=== PATIENT | male | born 1970 | race Caucasian/White ===

== ENCOUNTER 2023-09-15 11:19 | Outpatient (CLI) | payer BC, SELFPAY ==
--- OUTSIDE RECORDS SUMMARY | 2023-09-15 11:22 | XMS_ITS | Clinical Summary ---
Author Organization [facility] Address [place], [place] [address] Care Team Providers Care Press Set Up Name Role Phone Adrien Arvizu MD Primary Care Provider Allergies No known active allergies Medications Medication Sig Dispensed Refills Start Date End Date Status ACETAMINOPHEN 325 MG TAB PRN for LATHAM 0 07/15/2007 Active albuterol HFA (PROAIR HFA) 90 mcg/Actuation inhalerIndications:Acu te bronchospasm Inhale 2 Puffs by mouth every 4 hours while awake. 1 Inhaler 0 11/02/2009 Active predniSONE (DELTASONE) 20 mg tabletIndications:Acut e bronchospasm Take 3 tablets by mouth once daily X 5 days. Take with morning meal. 15 tablet 0 11/02/2009 Active Social History Tobacco Use Types Packs/Day Years Used Date Smoking Tobacco: Never Alcohol Use Standard Drinks/Week Comments Yes 0 (1 standard drink = 0.6 oz pur e alcohol) very very little Sex and Gender Information Value Date Recorded Sex Assigned at Not on file Gender Identity Not on file Sexual Orientation Not on file Obstetrics History Last Filed Vital Signs Vital Sign Reading Time Taken Comments Blood Pressure 135/85 11/02/2009 3:01 PM CDT Pulse 71 11/02/2009 3:01 PM CDT Temperature 36.8 ??C (98.3 ??F) 11/02/2009 3:01 PM CD T Respiratory Rate - - Oxygen Saturation 98% 11/02/2009 3:01 PM CDT Inhaled Oxygen Concentration - - Weight 83.2 kg (183 lb 6.4 oz) 11/02/2009 3:01 P M CDT Height - - Body Mass Index - - Plan of Treatment Health Maintenance Due Date Last Done Comments Tdap 1980 Depression screening for age 12+ 1981 HIV for age 15-65 1984 BMI (ht and wt on same day) for age 18+ 09/23/1987 Hepatitis C screening for ag e 18-79 09/23/1987 Tetanus booster 1989 Colonoscopy through age 75 2014 Lipids for age 45-75 2014 Zoster (shingles) series for age 50+ (1 of 2) 09/23/2019 COVID-19 vaccine series ( - 2022-24 season) 2022 Influenza for age 50-64 10/19/2023 Pneumococcal series for age 6-64 Aged Out No longer eligible based on patient's age to complete this topic Care Teams Press Set Up Relationship Specialty Start Date End Date Adrien Arvizu MD [address] [place] [address] PCP - General 11/02/09
== END 2023-09-15 11:20 | disposition home or self-care (01) ==
PROVIDERS: PCP Family Medicine; Visit Provider Family Medicine
DX: Z01.818 Encounter for other preprocedural examination (principal); Z12.5 Encounter for screening for malignant neoplasm of prostate
CPT/HCPCS: 80048; 85025; G0103

== ENCOUNTER 2023-09-29 06:35 | Outpatient (CLI) | payer BC, SELFPAY ==
--- OUTSIDE RECORDS SUMMARY | 2023-09-29 06:37 | XMS_ITS | Clinical Summary ---
Author Organization [facility] Address [place], [place] [address] Care Team Providers Care Statistical Financial Analyst Name Role Phone Adrien Arvizu MD Primary [...] age to complete this topic Care Teams Statistical Financial Analyst Relationship Specialty Start Date End Date Adrien Arvizu MD [address] [place] [address] PCP - General 11/02/09
--- NOTE | 2023-09-29 07:57 | W.ANESCHARGE ---
Anesthesia Charges Start Date/Time Anesthesia Start Date: 09/29/23 Anesthesia Start Time: 07:54 Stop Date/Time Anesthesia Stop Date: 09/29/23 Anesthesia Stop Time: 07:57
--- NOTE | 2023-09-29 08:49 | W.ANESCHARGE ---
Anesthesia Charges Start Date/Time Anesthesia Start Date: 09/29/23 Anesthesia Start Time: 07:34 Stop Date/Time Anesthesia Stop Date: 09/29/23 Anesthesia Stop Time: 07:57
--- NOTE | 2023-09-29 09:04 | W.ANESCHARGE ---
Anesthesia Charges Start Date/Time Anesthesia Start Date: 09/29/23 Anesthesia Start Time: 07:34 Stop Date/Time Anesthesia Stop Date: 09/29/23 Anesthesia Stop Time: 07:57
== END 2023-09-29 06:36 | disposition home or self-care (01) ==
LOC: OP CLINIC 06:36
PROVIDERS: PCP Family Medicine; Visit Provider Surgery
DX: Z12.11 Encounter for screening for malignant neoplasm of colon (principal); K57.30 Diverticulosis of large intestine without perforation or abscess without bleeding; Z86.010 Personal history of colon polyps
CPT/HCPCS: 00811; 00812; 45378; J2704

== ENCOUNTER 2024-09-15 10:50 | Outpatient (CLI) | payer BC, SELFPAY ==
--- NOTE | 2024-09-15 11:00 | CRLHL7_ITS ---
For Patients: As a result of the Century Cures Act, medical imaging exams and procedure reports are released immediately into your electronic medical record. You may view this report before your referring provider. If you have questions, please contact your health care provider. Indication: Nasal congestion, anosmia Technique: Noncontrast CT of the paranasal sinuses. Coronal and sagittal reformats. Bone and soft tissue algorithms. Comparison: CT sinus 05/25/2021 Findings: Frontal sinuses: Completely opacified frontal sinuses and recesses. Ethmoid air cells: Essentially completely opacified anterior and posterior ethmoid air cells. Sphenoid sinuses: Completely opacified left sphenoid sinus. Circumferential mucosal thickening throughout the right sphenoid sinus. Bilateral sphenoethmoidal recess opacification. Maxillary sinuses: Near complete opacification of the right maxillary sinus. Moderate lobulated circumferential mucosal thickening of the left maxillary sinus. Bilateral ostiomeatal unit opacification. Nasal cavity: Minor nasal septal deviation. No large yasmin bullosa. Polypoid mucosal lesions of the bilateral nasal cavities. Other structures: Clear mastoid air cells and middle ear cavities. Minimal right TMJ arthrosis. Orbits and intracranial structures are unremarkable for technique. IMPRESSION: 1. Pansinus mucosal inflammatory disease, similar to the 05/25/2021 CT. 2. Nasal polyps redemonstrated. Please note that all CT scans at this facility use dose modulation, iterative reconstruction, and/or weight-based dosing when appropriate to reduce radiation dose to as low as reasonably achievable. Dictated by Gely Cintron MD @ 09/16/2024 11:02:58 AM (Electronically Signed)
== END 2024-09-15 10:51 | disposition home or self-care (01) ==
LOC: CT 10:51
PROVIDERS: PCP Family Medicine; Visit Provider Otolaryngology
DX: R09.81 Nasal congestion (principal); J33.9 Nasal polyp, unspecified
CPT/HCPCS: 70486

== ENCOUNTER 2024-09-30 12:23 | Outpatient (CLI) | payer BC, SELFPAY | END 2024-09-30 12:24 | disposition home or self-care (01) | PROVIDERS: PCP Family Medicine; Visit Provider Family Medicine | DX: Z01.818 Encounter for other preprocedural examination (principal); Z12.5 Encounter for screening for malignant neoplasm of prostate | CPT/HCPCS: 80048; 80061; 85025; G0103 ==

== ENCOUNTER 2024-10-15 06:54 | Day surgery (SDC) | payer BC, SELFPAY ==
[2024-10-15] VITALS (15 sets, daily range): BP systolic 118–144; BP diastolic 81–101; PULSE 59–76; RESP 16–20; TEMP 36.2–36.7; O2SAT 95–100; BMI 28.3
[2024-10-15] MEDS: LACTATED RINGERS 1000 ML 1,000 ML 100 ML IV (07:30)
[2024-10-15] MEDS: SODIUM CHLORIDE 0.9 % (FLUSH) 10 ML SYRINGE IVF (07:35)
--- NOTE | 2024-10-15 07:49 | P.ANES_ITS ---
Anesthesia Charges Start Date/Time Anesthesia Start Date: 10/15/24 Anesthesia Start Time: 08:08 Stop Date/Time Anesthesia Stop Date: 10/15/24 Anesthesia Stop Time: 09:10 Coding CPT Codes CPT Codes: ANESTH NOSE/SINUS SURGERY - 97231 ([id number]) P1 - NORMAL HEALTHY PATIENT, QK - TREE FRUIT AND NUT FARMING SUPERVISOR 2-4 CNCRNT ANES PROC, QX - CARDIAC TECHNOLOGIST SVOli W/ MED DIRECTION
--- NOTE | 2024-10-15 07:49 | W.ANESCHARGE ---
Anesthesia Charges Start Date/Time Anesthesia Start Date: 10/15/24 Anesthesia Start Time: 08:08 Stop Date/Time Anesthesia Stop Date: 10/15/24 Anesthesia Stop Time: 09:10 Coding CPT Codes CPT Codes: ANESTH NOSE/SINUS SURGERY - 70586 ([id number]) P1 - NORMAL HEALTHY PATIENT, QK - EXCAVATOR OPERATOR 2-4 CNCRNT ANES PROC, QX - AGENCY SALES DEVELOPMENT ASSOCIATE SVOli W/ MED DIRECTION
[2024-10-15] MEDS: BUPIVACAINE 0.5%/EPINEPHRINE 0.9 MG (30.9 ML) INJECTION (08:24)
[2024-10-15] MEDS: AYR SALINE NASAL GEL 1 APPLIC NOSTRIL-B (08:45)
[2024-10-15] MEDS: MUPIROCIN 1 GM PACKET 1 APPLIC TOPICAL (08:45)
--- NOTE | 2024-10-15 09:26 | SUR.PHASEI ---
oral airway removed and pt coughed up a significant amount of bloody drainage pt suctioned and no further drainage noted
--- NOTE | 2024-10-15 10:03 | P.ANES_ITS ---
Anesthesia Charges Start Date/Time Anesthesia Start Date: 10/15/24 Anesthesia Start Time: 08:08 Stop Date/Time Anesthesia Stop Date: 10/15/24 Anesthesia Stop Time: 09:10 Coding CPT Codes CPT Codes: ANESTH NOSE/SINUS SURGERY - 84745 ([id number]) QK - GRINDER LAP 2-4 CNCRNT ANES PROC, QX - COMMERCIAL COLLECTOR SVC W/ MD MED DIRECTION, P1 - NORMAL HEALTHY PATIENT
--- NOTE | 2024-10-15 10:03 | W.ANESCHARGE ---
Anesthesia Charges Start Date/Time Anesthesia Start Date: 10/15/24 Anesthesia Start Time: 08:08 Stop Date/Time Anesthesia Stop Date: 10/15/24 Anesthesia Stop Time: 09:10 Coding CPT Codes CPT Codes: ANESTH NOSE/SINUS SURGERY - 03830 ([id number]) QK - DIRECTOR OF FIELD SALES 2-4 CNCRNT ANES PROC, QX - HOME SERVICE ADVISOR SVC W/ MD MED DIRECTION, P1 - NORMAL HEALTHY PATIENT
--- NOTE | 2024-10-15 10:33 | W.PM.ENTPROC ---
Procedure Note Date of procedure: 10/15/24 Procedure: Preoperative diagnosis nasal obstruction deviated septum, bilateral inferior turbinate hypertrophy, bilateral nasal polyposis. Bilateral chronic ethmoid maxillary sphenoid sinusitis, bilateral frontal sinusitis Postop diagnosis same Procedure nasal septoplasty, submucous partial resection inferior turbinates bilateral, endoscopic bilateral nasal polypectomy, endoscopic bilateral complete ethmoidectomy, endoscopic bilateral sphenoidotomy with tissue removal, endoscopic bilateral maxillary antrostomy with tissue removal Under general trach anesthesia patient was prepped and draped in usual fashion. Note that image guidance and 0 degree endoscopy reduced throughout the procedure. An incision was made the septal mucosa on the right side anterior to the septal deflection. The mucosa on either side this was elevated and deflected portions of septum were removed and a large piece trimmed straight and returned to intraseptal space A stab incision was made anterior of the right inferior turbinate a tunnel created with a Leighton dissector. A conservative anterior submucous resection was performed. The Coblation was used for hemostasis and to cauterize intramurally along the inferior 10%. This was repeated on the left side in identical fashion On the right side multiple polyps were removed from the nasal cavity. The ethmoid bulla was entered and dissection carried out in an anterior-posterior direction. The sphenoid was entered through the posterior ethmoid and a large amount of polyp tissue was removed from the sinuses. The inferior quarter the uncinate process was then taken down the right maxillary antrostomy of 1 cm diameter was created. A large amount of polypoid tissue was removed from the antral opening and also the sinus farrell. All of these procedures were repeated on the left side in identical fashion with identical findings. I did explore probing the frontal sinus but there was enough bleeding the visualization was difficult so I elected not to do that. Merocel packing and positive pack were placed in each side of the nasal cavity extending into the middle meatal region. The patient procedure was taken recovery in satisfactory condition. Blood loss was 120 mL. Surgeon: Red Salazar MD
== END 2024-10-15 10:58 | disposition home or self-care (01) ==
LOC: OR 06:55
PROVIDERS: PCP Family Medicine; Visit Provider Otolaryngology
PROC: (CPT 31231; principal; 2024-10-15 08:00)
DX: J34.2 Deviated nasal septum (principal); J34.3 Hypertrophy of nasal turbinates; J33.8 Other polyp of sinus; J32.2 Chronic ethmoidal sinusitis; J32.0 Chronic maxillary sinusitis; J32.3 Chronic sphenoidal sinusitis; J32.1 Chronic frontal sinusitis
CPT/HCPCS: 30520; 30140; 31259; 31267; 00160; 88305; A9270; J0330; J1100; J2250; J2405; J2704; J3010; J7120